=== PATIENT | male | born 1940 | race Caucasian/White ===

== ENCOUNTER 2018-05-30 21:32 | Inpatient (IN) | payer OTHER ==
[2018-05-30] MEDS: SOD CHLORIDE 0.9% 500 ML IV (22:07)
[2018-05-30 22:08] LABS: ADD MAN DIFF? NO
[2018-05-30] MEDS: CEFTRIAXONE 1 GM/50 ML (PMX) 50 ML IVPB (22:11)
[2018-05-30 22:20] LABS: WHITE BLOOD COUNT 19.4 10^3/ul (4.8-10.8)
[2018-05-30 22:20] LABS: ABNORMAL IP MESSAGE 1; BASOPHILS % 0.2 % (0.0-2.0); EOSINOPHILS # 0.2 10^3/ul (0.0-0.5); HEMATOCRIT 31.1 % (42.0-52.0); LYMPHOCYTES # 0.8 10^3/ul (0.8-2.9); LYMPHOCYTES % 3.9 % (15.0-51.0); MEAN CORPUSCULAR HEMOGLOBIN 36.9 pg (29.0-33.0); MEAN CORPUSCULAR HGB CONC 32.2 g/dl (32.0-37.0); MEAN CORPUSCULAR VOLUME 114.8 fl (82.0-101.0); MEAN PLATELET VOLUME 11.3 fl (7.4-10.4); MONOCYTE # 1.5 10^3/ul (0.3-0.9); MONOCYTES % 7.8 % (0.0-11.0); NEUTROPHIL # 16.7 10^3/ul (1.6-7.5); NEUTROPHILS % 85.7 % (39.0-77.0); NUCLEATED RED BLOOD CELLS # 0.1 10^3/ul (0.0-0.0); NUCLEATED RED BLOOD CELLS% 0.3 /100WBC (0.0-0.0); PLATELET COUNT 92 10^3/UL (140-415); POSITIVE DIFF @See below; RED BLOOD COUNT 2.71 10^6/ul (4.70-6.10); RED CELL DISTRIBUTION WIDTH 21.2 % (11.5-14.5)
[2018-05-30] MEDS: PANTOPRAZOLE IV 80 MG in SOD CHLORIDE 0.9% 100 ML IVPB (22:30)
[2018-05-30 22:39] LABS: INR 2.25; PROTIME 25.4 Sec (11.9-14.9)
[2018-05-30 22:40] LABS: PARTIAL THROMBOPLASTIN TIME 35.4 Sec (23.0-35.0)
[2018-05-30 22:43] LABS: ALANINE AMINOTRANSFERASE 54 IU/L (13-69); ALBUMIN/GLOBULIN RATIO 0.54; ALKALINE PHOSPHATASE 178 IU/L (42-121); ANION GAP 6 (5-13); ASPARTATE AMINO TRANSFERASE 88 IU/L (15-46); BILIRUBIN,INDIRECT 1.4 mg/dl (0-1.1); BILIRUBIN,TOTAL 1.6 mg/dl (0.2-1.3); BLOOD UREA NITROGEN 57 mg/dl (7-20); CALCIUM 8.7 mg/dl (8.4-10.2); CARBON DIOXIDE 22 mmol/L (21-31); CHLORIDE 113 mmol/L (97-110); CREATININE 1.64 mg/dl (0.61-1.24); GLUCOSE 118 mg/dl (70-220); POTASSIUM 4.4 mmol/L (3.5-5.1); SODIUM 141 mmol/L (135-144); TOTAL PROTEIN 5.7 g/dl (6.1-8.1)
[2018-05-30] MEDS: OCTREOTIDE 50 MCG in SOD CHLORIDE 0.9% 25 ML IVPB (22:47)
[2018-05-30 22:53] LABS: TROPONIN-I 0.019 ng/ml (0.000-0.120)
[2018-05-30] MEDS: OCTREOTIDE 500 MCG in SOD CHLORIDE 0.9% 49 ML IV (23:54)
[2018-05-30] MEDS: PANTOPRAZOLE IV 80 MG in SOD CHLORIDE 0.9% 100 ML IV (23:54)
[2018-05-31] MEDS: SOD CHLORIDE 0.9% 1,000 ML IV (00:38)
[2018-05-31] MEDS: DEXTROSE 5%-0.45% NACL 1,000 ML IV ×3 (04:32→21:30)
[2018-05-31 05:35] LABS: ADD MAN DIFF? NO
[2018-05-31 05:57] LABS: ALANINE AMINOTRANSFERASE 46 IU/L (13-69); ALBUMIN 2.1 g/dl (3.3-4.9); ALBUMIN/GLOBULIN RATIO 0.61; ALKALINE PHOSPHATASE 157 IU/L (42-121); ANION GAP 7 (5-13); ASPARTATE AMINO TRANSFERASE 77 IU/L (15-46); BILIRUBIN,INDIRECT 1.3 mg/dl (0-1.1); BILIRUBIN,TOTAL 1.5 mg/dl (0.2-1.3); BLOOD UREA NITROGEN 56 mg/dl (7-20); CALCIUM 8.5 mg/dl (8.4-10.2); CARBON DIOXIDE 24 mmol/L (21-31); CHLORIDE 113 mmol/L (97-110); CREATININE 1.64 mg/dl (0.61-1.24); GLUCOSE 135 mg/dl (70-220); POTASSIUM 4.7 mmol/L (3.5-5.1); SODIUM 144 mmol/L (135-144); TOTAL PROTEIN 5.5 g/dl (6.1-8.1)
[2018-05-31 06:04] LABS: IRON 51 ug/dl (35-150)
[2018-05-31 06:11] LABS: ABNORMAL IP MESSAGE 1; BASOPHILS % 0.2 % (0.0-2.0); EOSINOPHILS # 0.2 10^3/ul (0.0-0.5); EOSINOPHILS % 1.4 % (0.0-7.0); HEMATOCRIT 31.3 % (42.0-52.0); LYMPHOCYTES # 0.7 10^3/ul (0.8-2.9); LYMPHOCYTES % 4.7 % (15.0-51.0); MEAN CORPUSCULAR HEMOGLOBIN 37.3 pg (29.0-33.0); MEAN CORPUSCULAR HGB CONC 31.9 g/dl (32.0-37.0); MEAN CORPUSCULAR VOLUME 116.8 fl (82.0-101.0); MEAN PLATELET VOLUME 11.3 fl (7.4-10.4); MONOCYTE # 1.1 10^3/ul (0.3-0.9); MONOCYTES % 7.8 % (0.0-11.0); NEUTROPHIL # 12.4 10^3/ul (1.6-7.5); NEUTROPHILS % 84.6 % (39.0-77.0); NUCLEATED RED BLOOD CELLS% 0.2 /100WBC (0.0-0.0); PLATELET COUNT 86 10^3/UL (140-415); POSITIVE DIFF @See below; RED BLOOD COUNT 2.68 10^6/ul (4.70-6.10); RED CELL DISTRIBUTION WIDTH 21.3 % (11.5-14.5)
[2018-05-31 06:11] LABS: WHITE BLOOD COUNT 14.7 10^3/ul (4.8-10.8)
[2018-05-31 06:14] LABS: % IRON SATURATION 36 % SAT (22-52); TOTAL IRON BINDING CAPACITY 140 ug/dl (241-421)
[2018-05-31] MEDS ORDERED: PENDING SANTYL ORDER FOR WOUND CARE XX (07:00)
[2018-05-31] MEDS ORDERED: ONDANSETRON 4 MG INJ IV (07:30)
[2018-05-31] MEDS ORDERED: NACL 0.9% 3 ML SYG IV (07:30)
[2018-05-31] MEDS: PANTOPRAZOLE 40 MG INJ IV (08:50)
[2018-05-31 10:10] LABS: AMMONIA 24 umol/l (9-30)
[2018-05-31] MEDS: PANTOPRAZOLE IV 80 MG in SOD CHLORIDE 0.9% 100 ML IV ×2 (11:51→20:31)
[2018-05-31] MEDS: OCTREOTIDE 50 MCG INJ SC ×2 (11:52→20:30)
[2018-05-31 16:05] LABS: INR 2.08; PROTIME 23.9 Sec (11.9-14.9); PT RATIO 1.9
[2018-05-31] MEDS: ALBUMIN HUMAN 25% 100 ML IV (16:12)
[2018-05-31] MEDS: LACTULOSE 30ML CUP PO (17:00)
[2018-05-31] MEDS: PHYTONADIONE 10 MG/ML INJ SC (18:25)
[2018-05-31] MEDS: RIFAXIMIN 550 MG TAB PO (20:31)
[2018-06-01] MEDS: CEFTRIAXONE 1 GM/50 ML (PMX) 50 ML IVPB
[2018-06-01] MEDS: ALBUMIN HUMAN 25% 100 ML IV ×4 (00:03→17:00)
[2018-06-01] MEDS: DEXTROSE 5%-0.45% NACL 1,000 ML IV ×2 (03:09→11:48)
[2018-06-01] MEDS: PANTOPRAZOLE IV 80 MG in SOD CHLORIDE 0.9% 100 ML IV ×2 (06:00→18:02)
[2018-06-01 06:03] LABS: ADD MAN DIFF? NO
[2018-06-01 06:14] LABS: WHITE BLOOD COUNT 13.3 10^3/ul (4.8-10.8)
[2018-06-01 06:14] LABS: ABNORMAL IP MESSAGE 1; BASOPHILS % 0.1 % (0.0-2.0); EOSINOPHILS # 0.4 10^3/ul (0.0-0.5); EOSINOPHILS % 3.1 % (0.0-7.0); HEMATOCRIT 29.2 % (42.0-52.0); LYMPHOCYTES # 0.6 10^3/ul (0.8-2.9); LYMPHOCYTES % 4.6 % (15.0-51.0); MEAN CORPUSCULAR HEMOGLOBIN 36.6 pg (29.0-33.0); MEAN CORPUSCULAR HGB CONC 30.8 g/dl (32.0-37.0); MEAN CORPUSCULAR VOLUME 118.7 fl (82.0-101.0); MEAN PLATELET VOLUME 12.1 fl (7.4-10.4); MONOCYTE # 1.1 10^3/ul (0.3-0.9); MONOCYTES % 7.9 % (0.0-11.0); NEUTROPHIL # 11.1 10^3/ul (1.6-7.5); NEUTROPHILS % 83.3 % (39.0-77.0); NUCLEATED RED BLOOD CELLS% 0.2 /100WBC (0.0-0.0); PLATELET COUNT 76 10^3/UL (140-415); POSITIVE DIFF @See below; RED BLOOD COUNT 2.46 10^6/ul (4.70-6.10); RED CELL DISTRIBUTION WIDTH 20.8 % (11.5-14.5)
[2018-06-01 06:54] LABS: ALANINE AMINOTRANSFERASE 36 IU/L (13-69); ALBUMIN 2.4 g/dl (3.3-4.9); ALBUMIN/GLOBULIN RATIO 0.77; ALKALINE PHOSPHATASE 104 IU/L (42-121); ANION GAP 14 (5-13); ASPARTATE AMINO TRANSFERASE 42 IU/L (15-46); BILIRUBIN,INDIRECT 1.2 mg/dl (0-1.1); BILIRUBIN,TOTAL 1.4 mg/dl (0.2-1.3); BLOOD UREA NITROGEN 52 mg/dl (7-20); CALCIUM 8.6 mg/dl (8.4-10.2); CARBON DIOXIDE 22 mmol/L (21-31); CHLORIDE 109 mmol/L (97-110); CREATININE 1.53 mg/dl (0.61-1.24); GLUCOSE 173 mg/dl (70-220); MAGNESIUM 2.4 mg/dl (1.7-2.5); POTASSIUM 4.4 mmol/L (3.5-5.1); SODIUM 145 mmol/L (135-144); TOTAL PROTEIN 5.5 g/dl (6.1-8.1)
[2018-06-01] MEDS: PHYTONADIONE 10 MG/ML INJ SC ×2 (07:02→10:00)
[2018-06-01 07:29] LABS: CARCINOEMBRYONIC ANTIGEN 2.4 ng/ml (0.0-5.0)
[2018-06-01 07:30] LABS: HEPATITIS B SURFACE ANTIGEN NEGATIVE (NEGATIVE)
[2018-06-01 07:32] LABS: ALPHA FETOPROTEIN 1.29 IU/L (0.00-7.21)
[2018-06-01 07:33] LABS: CANCER ANTIGEN 19-9 54.7 U/ml (0.0-37.0)
[2018-06-01 07:47] LABS: HEPATITIS B SURFACE ANTIBODY NEGATIVE (NEGATIVE)
[2018-06-01 07:48] LABS: HEPATITIS C VIRAL ANTIBODY NEGATIVE (NEGATIVE)
[2018-06-01] MEDS: LACTULOSE 30ML CUP PO (09:00)
[2018-06-01] MEDS: RIFAXIMIN 550 MG TAB PO ×2 (09:00→20:41)
[2018-06-01] MEDS: OCTREOTIDE 50 MCG INJ SC ×2 (10:00→22:07)
[2018-06-01 11:51] LABS: TYPE AND SCREEN 1 1
[2018-06-01 11:54] LABS: OCCULT BLOOD STOOL POSITIVE (NEGATIVE)
[2018-06-01] MEDS: MEROPENEM 1 GM/50ML(PMX) 50 ML IVPB ×2 (12:20→20:42)
[2018-06-01 12:28] LABS: ADD MAN DIFF? NO
[2018-06-01 12:36] LABS: ABNORMAL IP MESSAGE 1; BASOPHILS % 0.2 % (0.0-2.0); EOSINOPHILS # 0.4 10^3/ul (0.0-0.5); EOSINOPHILS % 3.3 % (0.0-7.0); HEMATOCRIT 26.2 % (42.0-52.0); HEMOGLOBIN 8.5 g/dl (14.0-18.0); LYMPHOCYTES # 0.6 10^3/ul (0.8-2.9); LYMPHOCYTES % 4.4 % (15.0-51.0); MEAN CORPUSCULAR HEMOGLOBIN 37.4 pg (29.0-33.0); MEAN CORPUSCULAR HGB CONC 32.4 g/dl (32.0-37.0); MEAN CORPUSCULAR VOLUME 115.4 fl (82.0-101.0); MEAN PLATELET VOLUME 11.9 fl (7.4-10.4); MONOCYTE # 1.2 10^3/ul (0.3-0.9); MONOCYTES % 9.4 % (0.0-11.0); NEUTROPHIL # 10.3 10^3/ul (1.6-7.5); NEUTROPHILS % 81.7 % (39.0-77.0); NUCLEATED RED BLOOD CELLS% 0.2 /100WBC (0.0-0.0); PLATELET COUNT 70 10^3/UL (140-415); POSITIVE DIFF @See below; RED BLOOD COUNT 2.27 10^6/ul (4.70-6.10); RED CELL DISTRIBUTION WIDTH 20.7 % (11.5-14.5)
[2018-06-01 12:36] LABS: WHITE BLOOD COUNT 12.6 10^3/ul (4.8-10.8)
[2018-06-01 12:51] LABS: LIPASE 820 U/L (23-300)
[2018-06-01 12:55] LABS: INR 2.29; PROTIME 25.8 Sec (11.9-14.9)
[2018-06-01 15:59] LABS: ALPHA FETOPROTEIN 1.16 IU/L (0.00-7.21)
[2018-06-01] MEDS: LIDOCAINE 1% (MPF) 5 ML VIAL ×2 (16:06→16:35)
[2018-06-01 16:16] LABS: FOLATE > 20.0 ng/ml (2.8-20.0)
[2018-06-01 16:46] LABS: FLD MN% 9.2 %; FLD PMN% 90.8 %; FLD RBC 18000 /uL; FLD WBC 4992 /cmm
[2018-06-01 17:17] LABS: FLD TYPE ASCITES
[2018-06-01 17:17] LABS: FLD CLARITY HAZY; FLD COLOR AMBER
[2018-06-01 17:27] LABS: FLUID GLUCOSE 57 mg/dl; FLUID TOTAL PROTEIN 2.5 g/dl; FLUID TYPE ASCITES FLUID
[2018-06-01] MEDS ORDERED: hydrALAzine 20 MG INJ IV (17:30)
[2018-06-01] MEDS ORDERED: LABETALOL HCL 20MG INJ IV (17:30)
[2018-06-01] MEDS ORDERED: EPHEDrine SULFATE 50 MG/5 ML SYG IV (17:30)
[2018-06-01 17:31] LABS: FLUID AMYLASE < 30 U/L; FLUID TYPE ASCITES FLUID
[2018-06-01] MEDS: PHENYLephrine (100 MCG/ML) 5ML SYG (17:36)
[2018-06-01] MEDS: PROPOFOL 20 ML (17:37)
[2018-06-01] MEDS: ALBUMIN HUMAN 5% 250 ML IV (17:56)
[2018-06-01 18:17] LABS: FLUID LD 21842 U/L; FLUID TYPE ASCITIES FLUID
[2018-06-02] MEDS: ALBUMIN HUMAN 25% 100 ML IV (00:49)
[2018-06-02] MEDS: DEXTROSE 5%-0.45% NACL 1,000 ML IV ×2 (02:06→05:19)
[2018-06-02] MEDS: PANTOPRAZOLE IV 80 MG in SOD CHLORIDE 0.9% 100 ML IV ×3 (02:33→23:29)
[2018-06-02 05:31] LABS: PROTEIN, TOTAL 5.2 g/dL (6.1-8.1)
[2018-06-02 05:40] LABS: ADD MAN DIFF? NO
[2018-06-02 05:47] LABS: ABNORMAL IP MESSAGE 1; BASOPHILS % 0.1 % (0.0-2.0); EOSINOPHILS # 0.3 10^3/ul (0.0-0.5); EOSINOPHILS % 2.5 % (0.0-7.0); HEMATOCRIT 23.4 % (42.0-52.0); HEMOGLOBIN 7.4 g/dl (14.0-18.0); LYMPHOCYTES # 0.6 10^3/ul (0.8-2.9); LYMPHOCYTES % 5.2 % (15.0-51.0); MEAN CORPUSCULAR HEMOGLOBIN 37.2 pg (29.0-33.0); MEAN CORPUSCULAR HGB CONC 31.6 g/dl (32.0-37.0); MEAN CORPUSCULAR VOLUME 117.6 fl (82.0-101.0); MEAN PLATELET VOLUME 12.1 fl (7.4-10.4); MONOCYTE # 1.1 10^3/ul (0.3-0.9); MONOCYTES % 9.6 % (0.0-11.0); NEUTROPHIL # 9.3 10^3/ul (1.6-7.5); NEUTROPHILS % 81.5 % (39.0-77.0); NUCLEATED RED BLOOD CELLS% 0.3 /100WBC (0.0-0.0); PLATELET COUNT 57 10^3/UL (140-415); POSITIVE DIFF @See below; RED BLOOD COUNT 1.99 10^6/ul (4.70-6.10); RED CELL DISTRIBUTION WIDTH 21.2 % (11.5-14.5)
[2018-06-02 05:47] LABS: WHITE BLOOD COUNT 11.4 10^3/ul (4.8-10.8)
[2018-06-02 06:11] LABS: ANION GAP 8 (5-13); BLOOD UREA NITROGEN 44 mg/dl (7-20); CALCIUM 8.4 mg/dl (8.4-10.2); CARBON DIOXIDE 25 mmol/L (21-31); CHLORIDE 112 mmol/L (97-110); CREATININE 1.37 mg/dl (0.61-1.24); GLUCOSE 148 mg/dl (70-220); MAGNESIUM 2.3 mg/dl (1.7-2.5); PHOSPHORUS 3.5 mg/dl (2.5-4.9); POTASSIUM 4.4 mmol/L (3.5-5.1); SODIUM 145 mmol/L (135-144)
[2018-06-02] MEDS: RIFAXIMIN 550 MG TAB PO ×2 (08:07→20:31)
[2018-06-02] MEDS: MEROPENEM 1 GM/50ML(PMX) 50 ML IVPB ×2 (08:07→20:31)
[2018-06-02] MEDS: LACTULOSE 30ML CUP PO (08:07)
[2018-06-02] MEDS: OCTREOTIDE 50 MCG INJ SC ×2 (08:07→23:29)
[2018-06-02] MEDS: SOD CHLORIDE 0.45% 1,000 ML IV (11:44)
[2018-06-02 12:15] LABS: HEMATOCRIT 23.1 % (42.0-52.0); HEMOGLOBIN 7.6 g/dl (14.0-18.0)
[2018-06-02] MEDS: SOD CHLORIDE 0.9% 0 ML (15:55)
[2018-06-02] MEDS: IODIXANOL LOCM 100 ML BTL (15:55)
[2018-06-02] MEDS: SUCRALFATE (100 MG/ML) 10ML CUP PO ×2 (17:00→20:31)
[2018-06-02] MEDS: PHYTONADIONE 10 MG/ML INJ IM (18:35)
[2018-06-03 05:25] LABS: ADD MAN DIFF? NO
[2018-06-03 05:34] LABS: ABNORMAL IP MESSAGE 1; BASOPHILS % 0.1 % (0.0-2.0); EOSINOPHILS # 0.4 10^3/ul (0.0-0.5); EOSINOPHILS % 2.5 % (0.0-7.0); HEMATOCRIT 24.2 % (42.0-52.0); HEMOGLOBIN 7.7 g/dl (14.0-18.0); LYMPHOCYTES # 0.8 10^3/ul (0.8-2.9); LYMPHOCYTES % 5.4 % (15.0-51.0); MEAN CORPUSCULAR HEMOGLOBIN 37.2 pg (29.0-33.0); MEAN CORPUSCULAR HGB CONC 31.8 g/dl (32.0-37.0); MEAN CORPUSCULAR VOLUME 116.9 fl (82.0-101.0); MEAN PLATELET VOLUME 12.5 fl (7.4-10.4); MONOCYTE # 1.8 10^3/ul (0.3-0.9); MONOCYTES % 11.6 % (0.0-11.0); NEUTROPHIL # 11.6 10^3/ul (1.6-7.5); NEUTROPHILS % 76.6 % (39.0-77.0); NUCLEATED RED BLOOD CELLS # 0.1 10^3/ul (0.0-0.0); NUCLEATED RED BLOOD CELLS% 0.4 /100WBC (0.0-0.0); PLATELET COUNT 73 10^3/UL (140-415); POSITIVE DIFF @See below; RED BLOOD COUNT 2.07 10^6/ul (4.70-6.10); RED CELL DISTRIBUTION WIDTH 21.2 % (11.5-14.5)
[2018-06-03 05:34] LABS: WHITE BLOOD COUNT 15.1 10^3/ul (4.8-10.8)
[2018-06-03] MEDS: SOD CHLORIDE 0.45% 1,000 ML IV (05:41)
[2018-06-03 06:04] LABS: LIPASE 1117 U/L (23-300)
[2018-06-03 06:27] LABS: ANION GAP 13 (5-13); BLOOD UREA NITROGEN 43 mg/dl (7-20); CALCIUM 8.3 mg/dl (8.4-10.2); CARBON DIOXIDE 19 mmol/L (21-31); CHLORIDE 111 mmol/L (97-110); CREATININE 1.49 mg/dl (0.61-1.24); GLUCOSE 156 mg/dl (70-220); MAGNESIUM 2.2 mg/dl (1.7-2.5); PHOSPHORUS 3.3 mg/dl (2.5-4.9); POTASSIUM 4.7 mmol/L (3.5-5.1); SODIUM 143 mmol/L (135-144)
[2018-06-03] MEDS: RIFAXIMIN 550 MG TAB PO ×2 (08:32→22:25)
[2018-06-03] MEDS: LACTULOSE 30ML CUP PO (08:32)
[2018-06-03] MEDS: PANTOPRAZOLE IV 80 MG in SOD CHLORIDE 0.9% 100 ML IV ×2 (08:32→17:04)
[2018-06-03] MEDS: OCTREOTIDE 50 MCG INJ SC (08:33)
[2018-06-03] MEDS: MEROPENEM 1 GM/50ML(PMX) 50 ML IVPB ×2 (08:33→22:25)
[2018-06-03] MEDS: SUCRALFATE (100 MG/ML) 10ML CUP PO ×3 (10:40→17:03)
[2018-06-03] MEDS: FUROSEMIDE 20 MG TAB PO ×2 (10:40→17:03)
[2018-06-03 11:59] LABS: ADD UMIC NO; UR ASCORBIC ACID 40 mg/dL (NEGATIVE); UR BILIRUBIN (Dip) NEGATIVE (NEGATIVE); UR BLOOD (Dip) NEGATIVE (NEGATIVE); UR CLARITY CLEAR (CLEAR); UR COLOR AMBER (YELLOW); UR GLUCOSE (Dip) NEGATIVE (NEGATIVE); UR KETONES (Dip) NEGATIVE (NEGATIVE); UR LEUKOCYTE ESTERASE (Dip) NEGATIVE Leu/ul (NEGATIVE); UR NITRITE (Dip) NEGATIVE (NEGATIVE); UR SPECIFIC GRAVITY (Dip) 1.017 (1.003-1.030); UR TOTAL PROTEIN (Dip) NEGATIVE (NEGATIVE); UR UROBILINOGEN (Dip) 1+ mg/dL (NEGATIVE)
[2018-06-03 12:11] LABS: CREATININE,URINE RANDOM 97.17 mg/dl (20-370)
[2018-06-03 12:15] LABS: SODIUM,URINE RANDOM < 13 mmol/L (30-90)
[2018-06-03 15:46] LABS: HAPTOGLOBIN 71 mg/dL (43-212)
[2018-06-03] MEDS: IODIXANOL LOCM 100 ML BTL (16:49)
[2018-06-03] MEDS: SOD CHLORIDE 0.9% 100 ML (17:20)
[2018-06-03 23:16] LABS: ABNORMAL PROTEIN BAND 1 0.2 g/dL (NONE DETECTED); ABNORMAL PROTEIN BAND 2 0.2 g/dL (NONE DETECTED); ALBUMIN 2.5 g/dL (3.8-4.8); ALPHA-1-GLOBULINS 0.3 g/dL (0.2-0.3); ALPHA-2-GLOBULINS 0.3 g/dL (0.5-0.9); BETA 2 GLOBULINS 0.3 g/dL (0.2-0.5); BETA GLOBULINS 0.2 g/dL (0.4-0.6); GAMMA GLOBULINS 1.7 g/dL (0.8-1.7)
[2018-06-04] MEDS: OCTREOTIDE 50 MCG INJ SC ×3 (00:07→20:41)
[2018-06-04] MEDS: SUCRALFATE (100 MG/ML) 10ML CUP PO ×5 (00:07→20:41)
[2018-06-04] MEDS: PANTOPRAZOLE IV 80 MG in SOD CHLORIDE 0.9% 100 ML IV ×3 (04:51→14:19)
[2018-06-04] MEDS: FUROSEMIDE 20 MG TAB PO ×2 (04:52→17:15)
[2018-06-04 05:44] LABS: WHITE BLOOD COUNT 16.7 10^3/ul (4.8-10.8)
[2018-06-04 05:44] LABS: ABNORMAL IP MESSAGE 1; ADD MAN DIFF? NO; BASOPHILS % 0.1 % (0.0-2.0); EOSINOPHILS # 0.6 10^3/ul (0.0-0.5); EOSINOPHILS % 3.7 % (0.0-7.0); HEMATOCRIT 23.2 % (42.0-52.0); HEMOGLOBIN 7.4 g/dl (14.0-18.0); LYMPHOCYTES # 1.2 10^3/ul (0.8-2.9); MEAN CORPUSCULAR HEMOGLOBIN 37.2 pg (29.0-33.0); MEAN CORPUSCULAR HGB CONC 31.9 g/dl (32.0-37.0); MEAN CORPUSCULAR VOLUME 116.6 fl (82.0-101.0); MEAN PLATELET VOLUME 12.3 fl (7.4-10.4); MONOCYTE # 2.1 10^3/ul (0.3-0.9); MONOCYTES % 12.8 % (0.0-11.0); NEUTROPHIL # 12.1 10^3/ul (1.6-7.5); NEUTROPHILS % 72.4 % (39.0-77.0); NUCLEATED RED BLOOD CELLS # 0.1 10^3/ul (0.0-0.0); NUCLEATED RED BLOOD CELLS% 0.4 /100WBC (0.0-0.0); PLATELET COUNT 85 10^3/UL (140-415); POSITIVE DIFF @See below; RED BLOOD COUNT 1.99 10^6/ul (4.70-6.10); RED CELL DISTRIBUTION WIDTH 21.1 % (11.5-14.5)
[2018-06-04 06:14] LABS: LIPASE 611 U/L (23-300)
[2018-06-04 06:53] LABS: ANION GAP 10 (5-13); BLOOD UREA NITROGEN 45 mg/dl (7-20); CALCIUM 8.1 mg/dl (8.4-10.2); CARBON DIOXIDE 20 mmol/L (21-31); CHLORIDE 111 mmol/L (97-110); CREATININE 1.62 mg/dl (0.61-1.24); GLUCOSE 118 mg/dl (70-220); MAGNESIUM 2.1 mg/dl (1.7-2.5); PHOSPHORUS 3.9 mg/dl (2.5-4.9); POTASSIUM 4.7 mmol/L (3.5-5.1); SODIUM 141 mmol/L (135-144)
[2018-06-04] MEDS: RIFAXIMIN 550 MG TAB PO ×2 (08:28→20:41)
[2018-06-04] MEDS: LACTULOSE 30ML CUP PO (08:28)
[2018-06-04] MEDS: MEROPENEM 1 GM/50ML(PMX) 50 ML IVPB (08:28)
[2018-06-04] MEDS: PANTOPRAZOLE 40 MG INJ IV (17:15)
[2018-06-05] MEDS: PANTOPRAZOLE 40 MG INJ IV ×2 (06:26→18:03)
[2018-06-05] MEDS: FUROSEMIDE 20 MG TAB PO ×2 (06:28→18:02)
[2018-06-05] MEDS: LACTULOSE 30ML CUP PO ×2 (08:16→22:37)
[2018-06-05] MEDS: RIFAXIMIN 550 MG TAB PO ×2 (08:16→22:37)
[2018-06-05] MEDS: SUCRALFATE (100 MG/ML) 10ML CUP PO ×4 (08:16→22:36)
[2018-06-05] MEDS: OCTREOTIDE 50 MCG INJ SC (08:18)
[2018-06-05] MEDS: BALSAM PERU/CASTOR OIL 60 GM TUBE TOP ×2 (08:18→22:36)
[2018-06-05 12:28] LABS: ADD MAN DIFF? NO
[2018-06-05 12:33] LABS: ABNORMAL IP MESSAGE 1; BASOPHILS % 0.2 % (0.0-2.0); EOSINOPHILS # 0.7 10^3/ul (0.0-0.5); EOSINOPHILS % 3.5 % (0.0-7.0); HEMATOCRIT 22.1 % (42.0-52.0); HEMOGLOBIN 7.2 g/dl (14.0-18.0); LYMPHOCYTES # 0.9 10^3/ul (0.8-2.9); LYMPHOCYTES % 4.7 % (15.0-51.0); MEAN CORPUSCULAR HEMOGLOBIN 37.9 pg (29.0-33.0); MEAN CORPUSCULAR HGB CONC 32.6 g/dl (32.0-37.0); MEAN CORPUSCULAR VOLUME 116.3 fl (82.0-101.0); MEAN PLATELET VOLUME 12.5 fl (7.4-10.4); MONOCYTE # 2.3 10^3/ul (0.3-0.9); MONOCYTES % 11.4 % (0.0-11.0); NEUTROPHIL # 14.9 10^3/ul (1.6-7.5); NEUTROPHILS % 75.2 % (39.0-77.0); NUCLEATED RED BLOOD CELLS # 0.1 10^3/ul (0.0-0.0); NUCLEATED RED BLOOD CELLS% 0.7 /100WBC (0.0-0.0); PLATELET COUNT 88 10^3/UL (140-415); POSITIVE DIFF @See below; RED CELL DISTRIBUTION WIDTH 20.4 % (11.5-14.5)
[2018-06-05 12:33] LABS: WHITE BLOOD COUNT 19.8 10^3/ul (4.8-10.8)
[2018-06-05 15:23] LABS: IMMEDIATE SPIN CROSSMATCH 1 1
[2018-06-06] MEDS: OCTREOTIDE 50 MCG INJ SC ×2 (00:17→08:39)
[2018-06-06] MEDS ORDERED: SOD CHLORIDE 0.9% 250 ML IV (05:30)
[2018-06-06] MEDS: SOD CHLORIDE 0.9% 250 ML IV (05:31)
[2018-06-06] MEDS: PANTOPRAZOLE 40 MG INJ IV ×2 (05:44→17:58)
[2018-06-06] MEDS: MIDODRINE 5 MG TAB PO ×3 (05:45→18:00)
[2018-06-06] MEDS: FUROSEMIDE 20 MG TAB PO (05:45)
[2018-06-06] MEDS: SUCRALFATE (100 MG/ML) 10ML CUP PO ×4 (08:32→22:11)
[2018-06-06] MEDS: RIFAXIMIN 550 MG TAB PO ×2 (08:36→22:12)
[2018-06-06] MEDS: LACTULOSE 30ML CUP PO ×2 (08:36→22:12)
[2018-06-06] MEDS: BALSAM PERU/CASTOR OIL 60 GM TUBE TOP ×2 (08:40→22:13)
[2018-06-06] MEDS ORDERED: MIDODRINE 5 MG TAB PO (09:00)
[2018-06-06] MEDS ORDERED: ALBUMIN HUMAN 25% 100 ML IV (09:00)
[2018-06-06] MEDS: ALBUMIN HUMAN 25% 50 ML IVPB ×4 (10:00→13:00)
[2018-06-06 12:56] LABS: CREATININE, RANDOM URINE 99 mg/dL (20-320); MICROALBUMIN 1.1 mg/dL; MICROALBUMIN/CREATININE RATIO 11 (<30)
[2018-06-06] MEDS: CEFEPIME 1GM/50 ML (PMX) 50 ML IVPB (15:00)
[2018-06-07] MEDS: PANTOPRAZOLE 40 MG INJ IV ×3 (05:44→17:29)
[2018-06-07 06:49] LABS: ABNORMAL IP MESSAGE 1; HEMATOCRIT 23.8 % (42.0-52.0); HEMOGLOBIN 7.8 g/dl (14.0-18.0); MEAN CORPUSCULAR HEMOGLOBIN 37.1 pg (29.0-33.0); MEAN CORPUSCULAR HGB CONC 32.8 g/dl (32.0-37.0); MEAN CORPUSCULAR VOLUME 113.3 fl (82.0-101.0); MEAN PLATELET VOLUME 12.7 fl (7.4-10.4); NUCLEATED RED BLOOD CELLS% 0.7 /100WBC (0.0-0.0); PLATELET COUNT 75 10^3/UL (140-415); POSITIVE DIFF @See below; RED CELL DISTRIBUTION WIDTH 21.1 % (11.5-14.5)
[2018-06-07 06:49] LABS: WHITE BLOOD COUNT 29.5 10^3/ul (4.8-10.8)
[2018-06-07 06:53] LABS: ADD MAN DIFF? YES
[2018-06-07] MEDS: ALBUMIN HUMAN 25% 100 ML IV ×4 (06:59→17:28)
[2018-06-07 07:12] LABS: INR 3.23; PT RATIO 2.7
[2018-06-07 07:16] LABS: ALANINE AMINOTRANSFERASE 35 IU/L (13-69); ALBUMIN 1.7 g/dl (3.3-4.9); ALKALINE PHOSPHATASE 88 IU/L (42-121); ASPARTATE AMINO TRANSFERASE 37 IU/L (15-46); BILIRUBIN,INDIRECT 2.5 mg/dl (0-1.1); BILIRUBIN,TOTAL 4.6 mg/dl (0.2-1.3); TOTAL PROTEIN 4.7 g/dl (6.1-8.1)
[2018-06-07 07:17] LABS: ANION GAP 10 (5-13); BLOOD UREA NITROGEN 55 mg/dl (7-20); CALCIUM 8.6 mg/dl (8.4-10.2); CARBON DIOXIDE 19 mmol/L (21-31); CHLORIDE 109 mmol/L (97-110); CREATININE 2.53 mg/dl (0.61-1.24); GLUCOSE 95 mg/dl (70-220); MAGNESIUM 2.2 mg/dl (1.7-2.5); POTASSIUM 4.5 mmol/L (3.5-5.1); SODIUM 138 mmol/L (135-144)
[2018-06-07 07:51] LABS: ANISOCYTOSIS 3+ (0-0); PLATELET ESTIMATE DECREASED; POIKILOCYTOSIS 3+ (0-0); POLYCHROMASIA 1+ (0-0); TOXIC GRANULATION 1+ (0-0)
[2018-06-07] MEDS: MIDODRINE 5 MG TAB PO ×3 (08:31→17:29)
[2018-06-07] MEDS: LACTULOSE 30ML CUP PO ×2 (08:31→21:33)
[2018-06-07] MEDS: BALSAM PERU/CASTOR OIL 60 GM TUBE TOP ×2 (08:31→22:49)
[2018-06-07] MEDS: RIFAXIMIN 550 MG TAB PO ×3 (08:31→21:33)
[2018-06-07] MEDS: SUCRALFATE (100 MG/ML) 10ML CUP PO ×4 (08:31→21:33)
[2018-06-07] MEDS ORDERED: OCTREOTIDE 50 MCG INJ SC (09:00)
[2018-06-07 09:33] LABS: BAND NEUTROPHILS #M 7.3 10^3/ul (0.0-0.6); BAND NEUTROPHILS % (M) 25 % (0-4); BURR CELLS 2+ (0-0); EOSINOPHILS % (M) 2 % (0-7); ERYTHROBLAST% (NRBC) (M) 1 % (0-0); GIANT THROMBO% (M) 5 % (0-0); LYMPHOCYTES #M 0.2 10^3/ul (0.8-2.9); LYMPHOCYTES % (M) 1 % (15-51); MONOCYTE #M 1.1 10^3/ul (0.3-0.9); MONOCYTES % (M) 4 % (0-11); MYELOCYTES #M 0.5 10^3/ul (0.0-0.0); MYELOCYTES % (M) 2 % (0-0); SEG NEUT #M 21.6 10^3/ul (1.6-7.5); SEGMENTED NEUTROPHILS (M) % 66 % (39-77); SMUDGE%M 60 % (0-0)
[2018-06-07] MEDS: DOXYCYCLINE 100 MG in SOD CHLORIDE 0.9% 250 ML IVPB (15:30)
[2018-06-07] MEDS: NORepinephrine 8MG/250 ML (PMX 250 ML IV (20:06)
[2018-06-07] MEDS: MEROPENEM 500MG/50 ML (PMX) 50 ML IVPB (22:48)
[2018-06-08] MEDS: ALBUMIN HUMAN 25% 100 ML IV ×2 (00:49→09:11)
[2018-06-08] MEDS: DOXYCYCLINE 100 MG in SOD CHLORIDE 0.9% 250 ML IVPB ×3 (01:30→21:57)
[2018-06-08 05:05] LABS: ADD MAN DIFF? NO
[2018-06-08 05:11] LABS: ABNORMAL IP MESSAGE 1; BASOPHILS % 0.1 % (0.0-2.0); EOSINOPHILS # 0.3 10^3/ul (0.0-0.5); EOSINOPHILS % 1.2 % (0.0-7.0); HEMATOCRIT 20.1 % (42.0-52.0); LYMPHOCYTES # 0.9 10^3/ul (0.8-2.9); LYMPHOCYTES % 3.3 % (15.0-51.0); MEAN CORPUSCULAR HGB CONC 33.3 g/dl (32.0-37.0); MEAN PLATELET VOLUME 12.9 fl (7.4-10.4); MONOCYTE # 1.8 10^3/ul (0.3-0.9); MONOCYTES % 6.7 % (0.0-11.0); NEUTROPHIL # 23.4 10^3/ul (1.6-7.5); NEUTROPHILS % 85.6 % (39.0-77.0); NUCLEATED RED BLOOD CELLS # 0.1 10^3/ul (0.0-0.0); NUCLEATED RED BLOOD CELLS% 0.5 /100WBC (0.0-0.0); PLATELET COUNT 68 10^3/UL (140-415); POSITIVE DIFF @See below; RED BLOOD COUNT 1.81 10^6/ul (4.70-6.10); RED CELL DISTRIBUTION WIDTH 20.4 % (11.5-14.5)
[2018-06-08 05:11] LABS: WHITE BLOOD COUNT 27.3 10^3/ul (4.8-10.8)
[2018-06-08 05:36] LABS: ANION GAP 13 (5-13); BLOOD UREA NITROGEN 57 mg/dl (7-20); CALCIUM 9.3 mg/dl (8.4-10.2); CARBON DIOXIDE 19 mmol/L (21-31); CHLORIDE 108 mmol/L (97-110); CREATININE 2.48 mg/dl (0.61-1.24); GLUCOSE 75 mg/dl (70-220); MAGNESIUM 2.2 mg/dl (1.7-2.5); PHOSPHORUS 5.7 mg/dl (2.5-4.9); POTASSIUM 4.1 mmol/L (3.5-5.1); SODIUM 140 mmol/L (135-144)
[2018-06-08 05:57] LABS: HEMOGLOBIN 6.7 g/dl (14.0-18.0)
[2018-06-08] MEDS: PANTOPRAZOLE 40 MG INJ IV ×2 (06:00→17:43)
[2018-06-08 07:35] LABS: ANISOCYTOSIS 3+ (0-0); BAND NEUTROPHILS #M 4.9 10^3/ul (0.0-0.6); BAND NEUTROPHILS % (M) 18 % (0-4); BURR CELLS 2+ (0-0); ERYTHROBLAST% (NRBC) (M) 1 % (0-0); MONOCYTE #M 1.6 10^3/ul (0.3-0.9); MONOCYTES % (M) 6 % (0-11); MYELOCYTES #M 0.2 10^3/ul (0.0-0.0); MYELOCYTES % (M) 1 % (0-0); PLATELET ESTIMATE DECREASED; POIKILOCYTOSIS 3+ (0-0); POLYCHROMASIA 1+ (0-0); PROMYELOCYTES #M 0.2 10^3/ul (0-0); PROMYELOCYTES % (M) 1 % (0-0); SEG NEUT #M 21.5 10^3/ul (1.6-7.5); SEGMENTED NEUTROPHILS (M) % 74 % (39-77); SMUDGE%M 10 % (0-0)
[2018-06-08] MEDS: RIFAXIMIN 550 MG TAB PO ×3 (09:11→21:58)
[2018-06-08] MEDS: SUCRALFATE (100 MG/ML) 10ML CUP PO ×4 (09:11→21:58)
[2018-06-08] MEDS: LACTULOSE 30ML CUP PO ×2 (09:11→21:58)
[2018-06-08] MEDS: BALSAM PERU/CASTOR OIL 60 GM TUBE TOP ×2 (10:10→21:58)
[2018-06-08] MEDS: MEROPENEM 500MG/50 ML (PMX) 50 ML IVPB ×2 (10:11→21:54)
[2018-06-08 11:39] LABS: ADD MAN DIFF? NO
[2018-06-08 11:42] LABS: ABNORMAL IP MESSAGE 1; BASOPHILS % 0.1 % (0.0-2.0); EOSINOPHILS # 0.5 10^3/ul (0.0-0.5); EOSINOPHILS % 1.8 % (0.0-7.0); HEMATOCRIT 19.9 % (42.0-52.0); LYMPHOCYTES # 0.9 10^3/ul (0.8-2.9); LYMPHOCYTES % 3.5 % (15.0-51.0); MEAN CORPUSCULAR HEMOGLOBIN 37.6 pg (29.0-33.0); MEAN CORPUSCULAR HGB CONC 32.7 g/dl (32.0-37.0); MEAN PLATELET VOLUME 13.2 fl (7.4-10.4); MONOCYTE # 1.8 10^3/ul (0.3-0.9); MONOCYTES % 6.8 % (0.0-11.0); NEUTROPHIL # 22.7 10^3/ul (1.6-7.5); NEUTROPHILS % 84.3 % (39.0-77.0); NUCLEATED RED BLOOD CELLS # 0.1 10^3/ul (0.0-0.0); NUCLEATED RED BLOOD CELLS% 0.5 /100WBC (0.0-0.0); PLATELET COUNT 73 10^3/UL (140-415); POSITIVE DIFF @See below; RED BLOOD COUNT 1.73 10^6/ul (4.70-6.10); RED CELL DISTRIBUTION WIDTH 20.5 % (11.5-14.5)
[2018-06-08 11:44] LABS: HEMOGLOBIN 6.5 g/dl (14.0-18.0)
[2018-06-08] MEDS: NORepinephrine 8MG/250 ML (PMX 250 ML IV (12:05)
[2018-06-09 05:45] LABS: ADD MAN DIFF? NO
[2018-06-09 05:49] LABS: WHITE BLOOD COUNT 24.2 10^3/ul (4.8-10.8)
[2018-06-09 05:49] LABS: ABNORMAL IP MESSAGE 1; BASOPHILS % 0.1 % (0.0-2.0); EOSINOPHILS # 0.3 10^3/ul (0.0-0.5); EOSINOPHILS % 1.1 % (0.0-7.0); HEMATOCRIT 19.9 % (42.0-52.0); LYMPHOCYTES # 0.9 10^3/ul (0.8-2.9); LYMPHOCYTES % 3.8 % (15.0-51.0); MEAN CORPUSCULAR HEMOGLOBIN 37.8 pg (29.0-33.0); MEAN CORPUSCULAR HGB CONC 32.7 g/dl (32.0-37.0); MEAN CORPUSCULAR VOLUME 115.7 fl (82.0-101.0); MEAN PLATELET VOLUME 12.7 fl (7.4-10.4); MONOCYTE # 1.9 10^3/ul (0.3-0.9); NEUTROPHIL # 20.2 10^3/ul (1.6-7.5); NEUTROPHILS % 83.3 % (39.0-77.0); NUCLEATED RED BLOOD CELLS # 0.2 10^3/ul (0.0-0.0); NUCLEATED RED BLOOD CELLS% 0.7 /100WBC (0.0-0.0); PLATELET COUNT 66 10^3/UL (140-415); POSITIVE DIFF @See below; RED BLOOD COUNT 1.72 10^6/ul (4.70-6.10); RED CELL DISTRIBUTION WIDTH 20.9 % (11.5-14.5)
[2018-06-09 06:00] LABS: HEMOGLOBIN 6.5 g/dl (14.0-18.0)
[2018-06-09 06:12] LABS: ANION GAP 17 (5-13); BLOOD UREA NITROGEN 58 mg/dl (7-20); CALCIUM 9.2 mg/dl (8.4-10.2); CARBON DIOXIDE 14 mmol/L (21-31); CHLORIDE 112 mmol/L (97-110); CREATININE 2.68 mg/dl (0.61-1.24); GLUCOSE 65 mg/dl (70-220); MAGNESIUM 2.3 mg/dl (1.7-2.5); POTASSIUM 4.3 mmol/L (3.5-5.1); SODIUM 143 mmol/L (135-144)
[2018-06-09] MEDS: PANTOPRAZOLE 40 MG INJ IV ×2 (06:20→17:02)
[2018-06-09] MEDS: SUCRALFATE (100 MG/ML) 10ML CUP PO ×4 (08:39→22:03)
[2018-06-09] MEDS: LACTULOSE 30ML CUP PO ×2 (08:39→22:03)
[2018-06-09] MEDS: BALSAM PERU/CASTOR OIL 60 GM TUBE TOP ×2 (08:40→21:59)
[2018-06-09] MEDS: RIFAXIMIN 550 MG TAB PO ×2 (08:40→22:04)
[2018-06-09] MEDS: MIDODRINE 5 MG TAB PO ×3 (08:40→17:02)
[2018-06-09] MEDS: MEROPENEM 500MG/50 ML (PMX) 50 ML IVPB ×2 (09:43→21:57)
[2018-06-09] MEDS: DOXYCYCLINE 100 MG in SOD CHLORIDE 0.9% 250 ML IVPB ×2 (09:45→21:59)
[2018-06-10] MEDS: PANTOPRAZOLE 40 MG INJ IV ×2 (05:18→17:08)
[2018-06-10 05:23] LABS: ADD MAN DIFF? NO
[2018-06-10 05:34] LABS: ABNORMAL IP MESSAGE 1; BASOPHILS % 0.1 % (0.0-2.0); EOSINOPHILS # 0.3 10^3/ul (0.0-0.5); EOSINOPHILS % 1.3 % (0.0-7.0); LYMPHOCYTES # 1.1 10^3/ul (0.8-2.9); LYMPHOCYTES % 4.5 % (15.0-51.0); MEAN CORPUSCULAR HEMOGLOBIN 36.6 pg (29.0-33.0); MEAN CORPUSCULAR HGB CONC 31.5 g/dl (32.0-37.0); MEAN CORPUSCULAR VOLUME 116.3 fl (82.0-101.0); MEAN PLATELET VOLUME 12.7 fl (7.4-10.4); MONOCYTE # 1.7 10^3/ul (0.3-0.9); MONOCYTES % 7.1 % (0.0-11.0); NEUTROPHIL # 20.3 10^3/ul (1.6-7.5); NEUTROPHILS % 82.9 % (39.0-77.0); NUCLEATED RED BLOOD CELLS # 0.2 10^3/ul (0.0-0.0); NUCLEATED RED BLOOD CELLS% 0.9 /100WBC (0.0-0.0); PLATELET COUNT 70 10^3/UL (140-415); POSITIVE DIFF @See below; RED BLOOD COUNT 1.72 10^6/ul (4.70-6.10); RED CELL DISTRIBUTION WIDTH 21.3 % (11.5-14.5)
[2018-06-10 05:34] LABS: WHITE BLOOD COUNT 24.5 10^3/ul (4.8-10.8)
[2018-06-10 05:37] LABS: HEMOGLOBIN 6.3 g/dl (14.0-18.0)
[2018-06-10 06:09] LABS: ANION GAP 18 (5-13); BLOOD UREA NITROGEN 64 mg/dl (7-20); CALCIUM 9.5 mg/dl (8.4-10.2); CARBON DIOXIDE 13 mmol/L (21-31); CHLORIDE 112 mmol/L (97-110); CREATININE 3.12 mg/dl (0.61-1.24); GLUCOSE 65 mg/dl (70-220); MAGNESIUM 2.3 mg/dl (1.7-2.5); PHOSPHORUS 6.2 mg/dl (2.5-4.9); POTASSIUM 4.2 mmol/L (3.5-5.1); SODIUM 143 mmol/L (135-144)
[2018-06-10] MEDS: SUCRALFATE (100 MG/ML) 10ML CUP PO ×4 (08:13→21:56)
[2018-06-10] MEDS: LACTULOSE 30ML CUP PO ×2 (08:13→21:56)
[2018-06-10] MEDS: RIFAXIMIN 550 MG TAB PO ×2 (08:13→21:56)
[2018-06-10] MEDS: MEROPENEM 500MG/50 ML (PMX) 50 ML IVPB ×2 (08:14→23:29)
[2018-06-10] MEDS: DOXYCYCLINE 100 MG in SOD CHLORIDE 0.9% 250 ML IVPB ×2 (08:16→23:32)
[2018-06-10] MEDS: PHYTONADIONE 10 MG in DEXTROSE 5% 50 ML IVPB (08:26)
[2018-06-10] MEDS: BALSAM PERU/CASTOR OIL 60 GM TUBE TOP ×2 (08:28→21:00)
[2018-06-10] MEDS: MIDODRINE 5 MG TAB PO ×3 (09:00→17:08)
[2018-06-10] MEDS: SOD CHLORIDE 0.9% 500 ML IV (21:57)
[2018-06-11 05:17] LABS: ADD MAN DIFF? NO
[2018-06-11] MEDS: PANTOPRAZOLE 40 MG INJ IV ×2 (05:21→18:07)
[2018-06-11 05:29] LABS: WHITE BLOOD COUNT 24.7 10^3/ul (4.8-10.8)
[2018-06-11 05:29] LABS: ABNORMAL IP MESSAGE 1; BASOPHILS % 0.1 % (0.0-2.0); EOSINOPHILS # 0.2 10^3/ul (0.0-0.5); EOSINOPHILS % 0.8 % (0.0-7.0); HEMATOCRIT 19.8 % (42.0-52.0); LYMPHOCYTES % 3.9 % (15.0-51.0); MEAN CORPUSCULAR HEMOGLOBIN 37.9 pg (29.0-33.0); MEAN CORPUSCULAR HGB CONC 33.3 g/dl (32.0-37.0); MEAN CORPUSCULAR VOLUME 113.8 fl (82.0-101.0); MEAN PLATELET VOLUME 12.9 fl (7.4-10.4); MONOCYTE # 1.5 10^3/ul (0.3-0.9); MONOCYTES % 6.2 % (0.0-11.0); NEUTROPHIL # 21.1 10^3/ul (1.6-7.5); NEUTROPHILS % 85.4 % (39.0-77.0); NUCLEATED RED BLOOD CELLS # 0.2 10^3/ul (0.0-0.0); PLATELET COUNT 54 10^3/UL (140-415); POSITIVE DIFF @See below; RED BLOOD COUNT 1.74 10^6/ul (4.70-6.10); RED CELL DISTRIBUTION WIDTH 21.6 % (11.5-14.5)
[2018-06-11 05:34] LABS: HEMOGLOBIN 6.6 g/dl (14.0-18.0)
[2018-06-11 05:53] LABS: ANION GAP 16 (5-13); BLOOD UREA NITROGEN 72 mg/dl (7-20); CALCIUM 9.9 mg/dl (8.4-10.2); CARBON DIOXIDE 14 mmol/L (21-31); CHLORIDE 114 mmol/L (97-110); CREATININE 3.71 mg/dl (0.61-1.24); GLUCOSE 68 mg/dl (70-220); MAGNESIUM 2.4 mg/dl (1.7-2.5); PHOSPHORUS 6.6 mg/dl (2.5-4.9); POTASSIUM 4.4 mmol/L (3.5-5.1); SODIUM 144 mmol/L (135-144)
[2018-06-11] MEDS: SUCRALFATE (100 MG/ML) 10ML CUP PO ×4 (09:00→21:00)
[2018-06-11] MEDS: LACTULOSE 30ML CUP PO ×2 (09:00→21:00)
[2018-06-11] MEDS: BALSAM PERU/CASTOR OIL 60 GM TUBE TOP ×2 (09:00→21:00)
[2018-06-11] MEDS: MEROPENEM 500MG/50 ML (PMX) 50 ML IVPB ×2 (09:45→23:45)
[2018-06-11] MEDS: RIFAXIMIN 550 MG TAB PO ×2 (09:47→21:00)
[2018-06-11] MEDS: MIDODRINE 5 MG TAB PO ×3 (09:47→18:02)
[2018-06-11] MEDS: DOXYCYCLINE 100 MG in SOD CHLORIDE 0.9% 250 ML IVPB ×2 (10:21→23:45)
[2018-06-11] MEDS: ALBUMIN HUMAN 25% 100 ML IV ×2 (21:29→22:44)
[2018-06-12] MEDS: SOD CHLORIDE 0.9% 500 ML IV (03:41)
[2018-06-12] MEDS: PANTOPRAZOLE 40 MG INJ IV (05:08)
[2018-06-12] MEDS: RIFAXIMIN 550 MG TAB PO (09:00)
[2018-06-12] MEDS: SUCRALFATE (100 MG/ML) 10ML CUP PO ×3 (09:00→17:00)
[2018-06-12] MEDS: LACTULOSE 30ML CUP PO (09:00)
[2018-06-12] MEDS: MIDODRINE 5 MG TAB PO ×3 (09:15→17:00)
[2018-06-12] MEDS: MEROPENEM 500MG/50 ML (PMX) 50 ML IVPB (09:26)
[2018-06-12] MEDS: BALSAM PERU/CASTOR OIL 60 GM TUBE TOP ×2 (09:28→21:16)
[2018-06-12] MEDS: DOXYCYCLINE 100 MG in SOD CHLORIDE 0.9% 250 ML IVPB (10:04)
[2018-06-12] MEDS ORDERED: ARTIFICIAL TEARS 15 ML OPH BOTH EYES (17:30)
[2018-06-12] MEDS ORDERED: BISACODYL 10 MG SUPP PR (17:30)
[2018-06-12] MEDS ORDERED: ATROPINE 1% 5 ML OPH SL (17:30)
[2018-06-12] MEDS ORDERED: LORAZEPAM 2 MG INJ IV (17:30)
[2018-06-12] MEDS ORDERED: ACETAMINOPHEN 650 MG SUPP PR (17:30)
[2018-06-12] MEDS: LORAZEPAM 2 MG INJ IV (18:36)
[2018-06-12] MEDS: morphine (DRIP) 100 MG/100 ML 100 ML IV (18:39)
[2018-06-13] MEDS: LORAZEPAM 2 MG INJ IV ×2 (00:17→05:32)
== END 2018-06-13 13:30 | disposition expired | DRG 871 ==
LOC: ICU 06-07 19:18 → PP2 06-10 10:52 → E/R 21:32 → 6WM 05-31 01:30 → ICU 06-07 19:49 → 6WM 05-31 01:56
PROC: 0DJ08ZZ Inspection of Upper Intestinal Tract, Via Natural or Artificial Opening Endoscopic (ICD-10-PCS; principal; 2018-06-01 13:30)
PROC: 0W9G3ZX Drainage of Peritoneal Cavity, Percutaneous Approach, Diagnostic (ICD-10-PCS; 2018-06-01 16:30)
DX: A41.9 Sepsis, unspecified organism (principal); K72.00 Acute and subacute hepatic failure without coma; G92 Toxic encephalopathy; K65.2 Spontaneous bacterial peritonitis; K66.1 Hemoperitoneum; K76.7 Hepatorenal syndrome; R65.21 Severe sepsis with septic shock; N17.9 Acute kidney failure, unspecified; D62 Acute posthemorrhagic anemia; E87.0 Hyperosmolality and hypernatremia; K92.2 Gastrointestinal hemorrhage, unspecified; K76.6 Portal hypertension; K70.31 Alcoholic cirrhosis of liver with ascites; K20.9 Esophagitis, unspecified; K80.20 Calculus of gallbladder without cholecystitis without obstruction; K02.9 Dental caries, unspecified; K72.90 Hepatic failure, unspecified without coma; Z86.19 Personal history of other infectious and parasitic diseases; I12.9 Hypertensive chronic kidney disease with stage 1 through stage 4 chronic kidney disease, or unspecified chronic kidney disease; N18.9 Chronic kidney disease, unspecified; E83.9 Disorder of mineral metabolism, unspecified; N28.1 Cyst of kidney, acquired; N40.0 Benign prostatic hyperplasia without lower urinary tract symptoms; R33.9 Retention of urine, unspecified
CPT/HCPCS: 36415; 36430; 71045; 74176; 74177; 76700; 80048; 80053; 80076; 81003; 82042; 82043; 82105; 82140; 82150; 82270; 82378; 82607; 82728; 82746; 82945; 83010; 83540; 83615; 83690; 83735; 84100; 84155; 84157; 84165; 84300; 84484; 85014; 85018; 85025; 85610; 85730; 86301; 86644; 86706; 86803; 86850; 86900; 86901; 86920; 87040; 87070; 87075; 87081; 87086; 87102; 87116; 87340; 88104; 88305; 89051; 93005; 96374; 96375; 96376; 99285-25